=== PATIENT | female | born 1955 | race Caucasian/White ===

== ENCOUNTER 2016-09-03 05:09 | Day surgery (SDC) | payer OTHER, BC ==
[2016-08-30 19:19] VITALS: BMI 26.6
[2016-09-03] MEDS ORDERED: MIDAZOLAM HCL 2 MG/2 ML SINGLE DOSE VIAL ONE (11:43)
[2016-09-03] MEDS ORDERED: SUCCINYLCHOLINE CHLORIDE 200 MG/10 ML VIAL ONE (11:43)
[2016-09-03] MEDS ORDERED: PROPOFOL 20 ML ONE (11:43)
[2016-09-03] MEDS ORDERED: ceFAZolin SODIUM 1 GM VIAL IVPB ONE ×2 (12:03)
[2016-09-03] MEDS ORDERED: ceFAZolin SODIUM 1 GM VIAL ONE (12:07)
[2016-09-03] MEDS ORDERED: LIDOCAINE HCL/PF 2% SDV 5ML VIAL ONE (12:07)
[2016-09-03] MEDS ORDERED: ACETAMINOPHEN 325 MG TABLET (FP) PO PRN (12:23)
[2016-09-03] MEDS ORDERED: IBUPROFEN 400 MG TABLET (FP) PO PRN (12:23)
--- NOTE | 2016-09-03 12:23 | HP ---
History & Physical Update - History History: No Change - Physical Physical: No Change - Assessment Assessment: No Change - Plan Plan: No Change
--- NOTE | 2016-09-03 12:23 | OP ---
Operative Note - Note: Operative Date: 09/03/16 Pre-Operative Diagnosis: Endometrial myoma Operation: Hysteroscopic Myomectomy. Suction DC Findings: polyp 3-4 cm Post-Operative Diagnosis: Same as Pre-op Surgeon: Shari Grimm Anesthesia: General Estimated Blood Loss (mls): 5 Operative Report Dictated: Yes
[2016-09-03] MEDS ORDERED: ONDANSETRON 4 MG/2 ML VIAL IVPUSH PRN (12:34)
[2016-09-03] MEDS ORDERED: PROMETHAZINE HCL 25 MG/1 ML VIAL IVPUSH PRN (12:34)
[2016-09-03] MEDS ORDERED: oxyCODONE HCL 5 MG TABLET PO PRN (12:34)
[2016-09-03] MEDS ORDERED: LACTATED RINGERS SOLUTION 1,000 ML IV SCH (12:45)
[2016-09-03 14:52] VITALS: TEMP 97.9
[2016-09-03 15:07] VITALS: BP 115/68; PULSE 72
--- NOTE | 2016-09-04 11:19 | PATH ---
Surgical Pathology Report Patient Name: MARBIN CARO [facility]. Rec. #: [id number] /Age/Gender: 1955 (Age: 61) / F Account: [id number] Location: [facility] SURGICAL Taken: 09/03/2016 Received: 09/03/2016 Reported: 09/04/2016 Physicians: Shari Grimm M.D. Specimen(s) Received UTERINE CONTENTS Clinical History Postmenopausal bleeding Final Diagnosis UTERUS, HYSTEROSCOPIC MYOMECTOMY: MULTIPLE PORTIONS OF BENIGN ENDOMETRIAL POLYP, AND PORTION OF TISSUE CONSISTENT WITH HYALINIZED LEIOMYOMA. Electronically Signed Ladarius Vanessa M.D. Gross Description Received in formalin labeled "contents of uterus," is a 1 g, 2.8 x 1.7 x 0.3 cm aggregate of multiple alba-pink, irregular, firm to rubbery portions of tissue, consistent with morcellated fibroids. The formalin is filtered and the specimen is entirely submitted in one cassette. /09/03/2016 saudi09/03/2016
--- NOTE | 2016-09-06 16:16 | OP ---
DATE OF OPERATION: 09/03/2016 PREOPERATIVE DIAGNOSES: Submucosal myoma. POSTOPERATIVE DIAGNOSIS: Polyps approximately 3-4 cm. OPERATION: Hysteroscopic myomectomy, suction dilation and curettage. SURGEON: Shari Grimm M.D. ANESTHESIA: General. ESTIMATED BLOOD LOSS: 5 mL. PROCEDURE: Patient was taken to the operating room, placed in the dorsal lithotomy position, prepped and draped in the usual sterile fashion. A Mcdonnell catheter was placed in the bladder. A speculum was placed in the vagina. Anterior lip of the cervix was grasped with single-tooth tenaculum. The cervix was then dilated to accommodate the operative hysteroscope. A large endometrial polyp about 3-4 cm was seen. Cutting and cautery of the endometrial polyp was done. Removal of the polyp was done and then suction dilation and curettage was performed. Estimated blood loss was 5 mL. All were then removed. Patient tolerated the procedure well, was taken to the recovery room in stable condition. SHARI GRIMM M.D. [id number]
== END 2016-09-03 15:16 | disposition home or self-care (01) ==
LOC: JASU-SURG 05:09
PROVIDERS: ATTEND Obstetrics & Gynecology
PROC: 0UDB8ZX Extraction of Endometrium, Via Natural or Artificial Opening Endoscopic, Diagnostic (ICD-10-PCS; principal; 2016-09-03 11:00)
PROC: 0UB98ZZ Excision of Uterus, Via Natural or Artificial Opening Endoscopic (ICD-10-PCS; 2016-09-03 11:00)
DX: D25.9 Leiomyoma of uterus, unspecified (principal); N84.0 Polyp of corpus uteri
CPT/HCPCS: 88305-TC; 94760